=== PATIENT | female | born 1960 | race American Indian/Alaskan Native ===

== ENCOUNTER 2024-04-13 15:28 | Emergency (ER) | payer MEDICAID ==
[~2024-04-13] VITALS: Ht 172.7 cm; Wt 82.0 kg
[2024-04-13 15:31] VITALS: O2SAT 99
[2024-04-13 15:51] VITALS: TEMP 98.6
[2024-04-13 16:28] LABS: CLARITY URINE CLOUDY (CLEAR); COLOR URINE ORANGE (YELLOW); GLUCOSE URINE NEGATIVE (NEGATIVE); KETONES URINE NEGATIVE (NEGATIVE); LEUKOCYTE ESTERASE URINE 1+ (NEGATIVE); NITRITE URINE NEGATIVE (NEGATIVE); OCCULT BLOOD URINE 3+ (NEGATIVE); PROTEIN URINE 2+ (NEGATIVE); SPECIFIC GRAVITY URINE 1.029 (1.005-1.030)
[2024-04-13 16:41] LABS: BASOPHILS % 0.6 % (0.0-2.0); CHLORIDE 108 mEq/L (98-107); EOSINOPHILS % 3.3 % (0.0-5.0); HEMATOCRIT. 40.6 % (36.0-48.0); HEMOGLOBIN. 13.8 g/dL (12.0-16.0); LYMPHOCYTES % 30.1 % (20.0-50.0); MEAN CORPUSCULAR HGB CONC 33.9 g/dL (31.0-37.0); MEAN CORPUSCULAR VOLUME 94.4 fL (81.0-99.0); MONOCYTES % 10.2 % (2.0-8.0); NEUTROPHILS % 55.8 % (40.0-76.0); PLATELET 289 x1000/uL (130-400); POTASSIUM 3.6 mEq/L (3.5-5.1); RED BLOOD CELL COUNT 4.31 mill/uL (4.2-5.4); RED CELL DISTRIBUTION WIDTH 14.4 % (11.6-14.6); SODIUM 141 mEq/L (136-145); WHITE BLOOD COUNT 5.6 x1000/uL (4.5-11.0)
[2024-04-13 16:42] LABS: CALCIUM 9.1 mg/dL (8.7-10.4); CARBON DIOXIDE 25 mEq/L (21-32)
[2024-04-13 16:47] LABS: CREATININE 0.8 mg/dL (0.6-1.0); GLUCOSE 130 mg/dL (70-105); UREA NITROGEN BLOOD 13 mg/dL (9-23)
[2024-04-13 16:51] LABS: BACTERIA URINE 2+; RBC URINE 50-100 /hpf (0-2)
[2024-04-13 19:47] VITALS: BP 134/64; PULSE 66; RESP 22
== END 2024-04-13 19:52 | disposition home or self-care (01) ==
LOC: ER 15:28
DX: N93.9 Abnormal uterine and vaginal bleeding, unspecified (principal); R93.89 Abnormal findings on diagnostic imaging of other specified body structures; I10 Essential (primary) hypertension
CPT/HCPCS: 80048; 81003; 81025; 85025; 86850; 86900; 86901; 87086; 36415; 76830; 76856; 99284; Z7610